=== PATIENT | male | born 1955 | race Caucasian/White ===

== ENCOUNTER 2016-10-16 09:22 | Emergency (ER) | payer OTHER ==
[~2016-10-16] VITALS: Ht 172.7 cm; Wt 90.7 kg
--- NOTE | 2016-10-16 10:17 | ED UPPER/LOWER EXTREMITY COMPL ---
History of Present Illness General Chief Complaint: Hip Injury Stated Complaint: L HIP PAIN S/P QUADDING ACCIDENT Source: patient Exam Limitations: no limitations Vital Signs & Intake/Output Vital Signs & Intake/Output Vital Signs Date Time Temp Pulse Resp B/P B/P Pulse O2 O2 Flow FiO2 Mean Ox Delivery Rate 10/16 1108 98.2 88 18 172/81 98 Room Air 10/16 1053 Room Air 10/16 0926 98.2 92 16 181/98 96 Room Air Allergies Coded Allergies: shellfish derived (Severe, ANAPHYLAXIS 10/16/16) Reconcile Medications Amlodipine Besylate 10 MG TABLET 1 TAB PO DAILY HEART (Reported) Atenolol 25 MG TABLET 1 TAB PO DAILY HEART (Reported) Fenofibrate 160 MG TABLET 1 TAB PO DAILY ALLERGIES (Reported) Furosemide 40 MG TABLET 1 TAB PO DAILY WATER PILL (Reported) Simvastatin (Zocor*) 10 MG TABLET 1 TAB PO DAILY CHOLESTEROL (Reported) Telmisartan 80 MG TABLET 1 TAB PO DAILY HEART (Reported) Triage Note: 61 Y/O MALE C/O L HIP, L BUTTOCK PAIN S/P ACCIDENT WITH QUAD YESTERDAY. STATES "MY QUAD ROLLED OVER IN MY YARD". STATES HE HAS BEEN AMBULATORY WITH SOME PAIN. DENIES ANY OTHER INJURIES OR COMPLAINTS. DECLINES OFFER OF MEDS STATING NO PAIN AT REST. DECLINES W/C. Triage Nurses Notes Reviewed? yes Onset: Abrupt Duration: day(s):, constant, continues in ED Timing: recent history Severity: moderate, severe Pain/Injury Location: Left: Hip. No Modifying Factors: none HPI: 61-year-old male comes into emergency room for further evaluation of left buttocks pain. Patient reports that yesterday his quad rolled over and he hurt his left hip. Denies any head injury. Denies any neck pain. Denies any chest pain abdominal pain. Sharp. Continuous. Nonradiating. Denies any other associated symptoms. (JORGE BEAN) Past History Travel History Traveled to [place] past 21 day No Medical History Any Pertinent Medical History? see below for history Neurological: NONE EENT: NONE Cardiovascular: NONE Respiratory: NONE Gastrointestinal: NONE Hepatic: NONE Renal: NONE Musculoskeletal: NONE Psychiatric: NONE Endocrine: NONE Blood Disorders: NONE Cancer(s): NONE E LEARNING COORDINATOR/Reproductive: NONE Surgical History Surgical History: non-contributory Psychosocial History What is your primary language Vietnamese Tobacco Use: Current Daily Use Daily Tobacco Use Amount/Type: => 5 Cigarettes daily Family History Hx Contributory? No (JORGE BEAN) Review of Systems Review of Systems Constitutional: Reports: no symptoms. EENTM: Reports: no symptoms. Respiratory: Reports: no symptoms. Cardiovascular: Reports: no symptoms. Gastrointestinal/Abdominal: Reports: no symptoms. Genitourinary: Reports: no symptoms. Musculoskeletal: Reports: see HPI. Skin: Reports: no symptoms. Neurological/Psychological: Reports: no symptoms. Hematologic/Endocrine: Reports: no symptoms. Immunological: Reports: no symptoms. All Other Systems: Reviewed and Negative (JORGE BEAN) Physical Exam Physical Exam General Appearance: well developed/nourished, mild distress Head: atraumatic Eyes: Bilateral: normal appearance. Ears, Nose, Throat: normal ENT inspection, hearing grossly normal Neck: normal inspection Cardiovascular/Respiratory: no respiratory distress Back: normal inspection Hip Left: normal range of motion, normal inspection, soft tissue tenderness Knee Left: normal range of motion, normal inspection Foot Left: normal inspection, normal range of motion Neurologic/Tendon: normal sensation, normal motor functions, normal tendon functions, responds to pain, no evidence tendon injury, no pulse deficit Skin: intact, normal color, warm/dry Lymphatic: no anterior cervical margot (JORGE BEAN) Progress Differential Diagnosis: cellulitis, CHF, compartment syndrome, dislocation, DVT, fracture, gout, septic arthritis, sprain, tendon injury Plan of Care: Orders Procedure Date/time Status XRY-HIP 2-3 VIEWS, LEFT 10/17 1015 Active Diagnostic Imaging: Viewed by Me: Radiology Read. Discussed w/RAD: Radiology Read. Radiology Impression: SERVICE DATE: 10/16/16 EXAM TYPE: RAD - XRY-HIP 2-3 VIEWS, LEFT EXAMINATION: XR HIP, LEFT CLINICAL INFORMATION: Trauma COMPARISON: None TECHNIQUE: Two views of the left hip. FINDINGS: Osteoarthritic changes noted. No fracture or dislocation. Bones normally mineralized. Visualized pelvis is intact. Phleboliths noted. No soft tissue abnormality. IMPRESSION: No acute traumatic injury. Osteoarthritis. DICTATED BY: JESSICA ESTES MD Comments: 10/16/2016 12:35:51 PM Patient clinically looks well. Nontoxic-appearing. In no apparent distress. No evidence of acute fracture. Upon reevaluating the patient he reports that he feels that the pain may be more localized to his left lower back than his left hip area. There was no midline tenderness in the lower lumbar vertebrae. Pain is more consistent with muscular pain and localized laterally over the paraspinal muscles. I offered the patient an x-ray of the low back but he declined. Patient will be treated symptomatically. Follow-up with primary care doctor. (JORGE BEAN) Departure Departure Disposition: HOME OR SELF CARE Condition: Stable Clinical Impression Primary Impression: Strain of left hip Secondary Impressions: Strain of muscle, fascia and tendon of lower back, initial encounter Referrals: ROSIE SCHULTZ,MICHELL (PCP/Family) Additional Instructions: Taking ibuprofen at home. Follow-up with primary care doctor. Return if any concerns worsening symptoms. Please go over all results of today's visit with your primary care doctor. Contact your primary care doctor to let them know you were here in the emergency room. There may be nonspecific findings which may not be related to your visit today here in the emergency room but may require further evaluation and chronic monitoring by your primary care doctor. If you had a laceration today the chance of foreign body always remains. You should follow-up with your primary care doctor for recheck in 3-5 days for a wound check. If you had an x-ray done there is a chance that a fracture could have been missed on initial read and you should follow-up with your primary care doctor for repeat x-rays if symptoms persist. If your blood pressure was elevated here in the emergency room please have rechecked by her primary care doctor within the next 48 hours by your primary care doctor. If you were prescribed a narcotic here in the emergency room or any type of controlled substances you're not allowed to drive while taking this medication or operate any type of heavy machinery. Narcotics can make you feel lightheaded dizziness nausea and can cause constipation. You may need to case picker a stool softener. Thank you for choosing [facility] emergency room. Please return to the emergency room immediately if you have any other concerns worsening of symptoms. Departure Forms: Customer Survey General Discharge Information (JORGE BEAN) PA/LABORER PIPELINE Co-Sign Statement Statement: ED Attending supervision documentation- [] I saw and evaluated the patient. I have also reviewed all the pertinent lab results and diagnostic results. I agree with the findings and the plan of care as documented in the PA's/LABORER PIPELINE's documentation. [x] I have reviewed the ED Record and agree with the PA's/LABORER PIPELINE's documentation. [] Additions or exceptions (if any) to the PAs/LABORER PIPELINE's note and plan are summarized below: [] (HEIKE ISIDRO DO)
[2016-10-16] MEDS ORDERED: ZOCOR10 M1 PO (10:51)
[2016-10-16] MEDS ORDERED: ATENOLOL25 M1 PO (10:51)
[2016-10-16] MEDS ORDERED: TELMISARTAN80 M1 PO (10:51)
[2016-10-16] MEDS ORDERED: AMLODIPINE BESY10 M1 PO (10:52)
[2016-10-16] MEDS ORDERED: FENOFIBRATE160 M1 PO (10:52)
[2016-10-16] MEDS ORDERED: FUROSEMIDE40 M1 PO (10:52)
[2016-10-16 11:08] VITALS: BP 172/81
--- NOTE | 2016-10-16 11:09 | RADIOLOGY REPORT ---
EXAMINATION: XR HIP, LEFT CLINICAL INFORMATION: Trauma COMPARISON: None TECHNIQUE: Two views of the left hip. FINDINGS: Osteoarthritic changes noted. No fracture or dislocation. Bones normally mineralized. Visualized pelvis is intact. Phleboliths noted. No soft tissue abnormality. IMPRESSION: No acute traumatic injury. Osteoarthritis.
== END 2016-10-16 11:56 ==
LOC: ERH 09:22
DX: S76.012A Strain of muscle, fascia and tendon of left hip, initial encounter (principal); S39.012A Strain of muscle, fascia and tendon of lower back, initial encounter; V86.59XA Driver of other special all-terrain or other off-road motor vehicle injured in nontraffic accident, initial encounter; Y92.9 Unspecified place or not applicable
CPT/HCPCS: 73502-LT